=== PATIENT | female | born 1965 | race Two or more races ===

== ENCOUNTER 2023-08-16 06:15 | Inpatient (IN) | payer BC ==
[~2023-08-16] VITALS: Ht 149.9 cm; Wt 80.5 kg
[~2023-08-16 06:15] MED LIST: ATOR20TA PO; LINA145C PO; LISI-285 PO; MULT-732 PO; NORT10CA PO; QUET50TA5 PO
[2023-08-16] MEDS: levoFLOXacin 750MG 150 ML IV ONE (06:30)
[2023-08-16] MEDS: ceFAZolin 2 GM/D5W50ml 50 ML IV ONE (06:30)
[2023-08-16] MEDS: TRANEXAMIC ACID 20 ML ONE (06:34)
[2023-08-16] MEDS: SUCCINYLCHOLINE CHLORIDE 20 MG/ML 10ML VIAL IV ONE (06:59)
[2023-08-16] MEDS ORDERED: fentaNYL CITRATE 100 MCG/2 ML VL ONE ×4 (07:03→09:28)
[2023-08-16] MEDS ORDERED: PROPOFOL 10 MG/ML 20 ML IV ONE (07:08)
[2023-08-16] MEDS ORDERED: MIDAZOLAM HCL 2MG/2ML 2ml VIAL (1mg/ml) ONE (07:11)
[2023-08-16] MEDS ORDERED: PHENYLEPHRINE HCL 10 MG/ML VL ONE (07:14)
[2023-08-16] MEDS ORDERED: LIDOCAINE 1% INJ PF 5ML AMP ONE (07:18)
[2023-08-16] MEDS ORDERED: ONDANSETRON HCL 4 MG/2 ML VIAL ONE (08:04)
[2023-08-16] MEDS ORDERED: DexAMETHasone SOD PHOS 10MG/1ML VIAL INJ ONE (08:04)
[2023-08-16] MEDS: LIDOCAINE W/ EPINEPHRINE 1% 20ML VIAL ONE (08:07)
[2023-08-16] MEDS ORDERED: LABETALOL HCL 5 MG/ML ML 20ML VIAL IV ONE (08:12)
[2023-08-16] MEDS ORDERED: hydrALAZINE HCL 20 MG/ML VL ONE (08:16)
[2023-08-16] MEDS ORDERED: NITROGLYCERIN 0.4 MG SL TAB SL PRN (10:15)
[2023-08-16] MEDS ORDERED: ONDANSETRON HCL 4 MG/2 ML VIAL IV PRN (10:15)
[2023-08-16] MEDS ORDERED: MORPHINE SULFATE INJ 2 MG/ml SYRG IV PRN ×2 (10:15)
[2023-08-16 10:32] VITALS: PULSE 87; RESP 12; O2SAT 100
[2023-08-16] MEDS: ONDANSETRON HCL 4 MG/2 ML VIAL IV ONE (10:45)
[2023-08-16] MEDS ORDERED: MEPERIDINE HCL (25 MG/ML) 1ML VIAL IV PRN (10:45)
[2023-08-16] MEDS: HYDROmorphone HCL 2 MG/ML VL/or syr IV PRN ×2 (11:10→16:26)
[2023-08-16] MEDS: HYDROmorphone HCL 2 MG/ML VL/or syr ONE (11:10)
[2023-08-16] MEDS ORDERED: THROAT LOZENGES(CEPASTAT) MT PRN (11:30)
[2023-08-16] MEDS: CYCLOBENZAPRINE HCL 10 MG TAB PO SCH (13:15)
[2023-08-16] MEDS: ceFAZolin 1GM/50ML 50 ML IV SCH (14:03)
[2023-08-16] MEDS: oxyCODONE ER 10 MG TAB PO ONE ×2 (14:21→14:30)
[2023-08-16 17:47] VITALS: BP 129/67; PULSE 77; RESP 18; TEMP 97.7; O2SAT 95
[2023-08-16] MEDS: HYDROcodone-ACET 10/325MG TAB PO PRN (18:51)
[2023-08-16 20:00] VITALS: RESP 18; O2SAT 99
[2023-08-16 22:00] VITALS: BP 125/64; PULSE 92; RESP 18; TEMP 97.8; O2SAT 95
[2023-08-16] MEDS: D5W/SOD CHLO 0.9% 1,000 ML IV SCH (23:50)
[2023-08-16] MEDS: DOCUSATE SOD 100 MG CAP PO SCH (23:51)
[2023-08-17] VITALS (8 sets, daily range): BP systolic 98–129; BP diastolic 59–72; PULSE 74–104; RESP 16–19; TEMP 98.3–99.8; O2SAT 91–99
[2023-08-17] MEDS: HYDROmorphone HCL 2 MG/ML VL/or syr IV ONE (08:52)
[2023-08-17] MEDS: HYDROmorphone HCL 2 MG/ML VL/or syr IV PRN (13:28)
[2023-08-17] MEDS ORDERED: AMLO1TAB23 PO (17:20)
[2023-08-17] MEDS ORDERED: DULO20CA PO (17:20)
[2023-08-17] MEDS ORDERED: DIVA1TAB59 PO (17:20)
[2023-08-17] MEDS ORDERED: METO10TA3 PO (17:20)
[2023-08-17] MEDS ORDERED: SUMA25TA2 PO (17:20)
[2023-08-18] VITALS (7 sets, daily range): BP systolic 106–152; BP diastolic 51–87; PULSE 94–128; RESP 14–65; TEMP 97–100.4; O2SAT 86–100
[2023-08-19] VITALS (7 sets, daily range): BP systolic 118–131; BP diastolic 60–89; PULSE 86–100; RESP 16–18; TEMP 98.9–99.9; O2SAT 88–95
[2023-08-19] MEDS: CARISOPRODOL 350 MG TAB PO SCH (16:06)
[2023-08-19] MEDS: ACETAMINOPHEN 325 MG TAB PO PRN (20:58)
[2023-08-20 01:10] VITALS: BP 139/76; PULSE 92; RESP 18; TEMP 98.9; O2SAT 93
== END 2023-08-20 01:15 | DRG 455 ==
LOC: SUR 06:15 → OVERFLOW 10:08 → EAST 17:20
PROVIDERS: ADMIT Orthopaedic Surgery; ATTEND Orthopaedic Surgery
PROC: 01NB0ZZ Release Lumbar Nerve, Open Approach (ICD-10-PCS; 2023-08-16)
PROC: 01NR0ZZ Release Sacral Nerve, Open Approach (ICD-10-PCS; 2023-08-16)
PROC: 00NY0ZZ Release Lumbar Spinal Cord, Open Approach (ICD-10-PCS; 2023-08-16)
PROC: 0SG00AJ Fusion of Lumbar Vertebral Joint with Interbody Fusion Device, Posterior Approach, Anterior Column, Open Approach (ICD-10-PCS; 2023-08-16)
PROC: 4A11X4G Monitoring of Peripheral Nervous Electrical Activity, Intraoperative, External Approach (ICD-10-PCS; 2023-08-16)
PROC: 0SG30AJ Fusion of Lumbosacral Joint with Interbody Fusion Device, Posterior Approach, Anterior Column, Open Approach (ICD-10-PCS; 2023-08-16)
PROC: 0SG3071 Fusion of Lumbosacral Joint with Autologous Tissue Substitute, Posterior Approach, Posterior Column, Open Approach (ICD-10-PCS; 2023-08-16)
PROC: 0SG0071 Fusion of Lumbar Vertebral Joint with Autologous Tissue Substitute, Posterior Approach, Posterior Column, Open Approach (ICD-10-PCS; principal; 2023-08-16 07:17)
DX: M48.062 Spinal stenosis, lumbar region with neurogenic claudication (principal); M41.56 Other secondary scoliosis, lumbar region; M41.57 Other secondary scoliosis, lumbosacral region; F41.9 Anxiety disorder, unspecified; E78.5 Hyperlipidemia, unspecified; I10 Essential (primary) hypertension; G89.29 Other chronic pain; F91.9 Conduct disorder, unspecified; M51.16 Intervertebral disc disorders with radiculopathy, lumbar region; Z88.5 Allergy status to narcotic agent; Z88.1 Allergy status to other antibiotic agents
CPT/HCPCS: 36415; 86850; 86900; 86901; 87340; 97110; 97116; 97163; 97530; G0378; J0330; J1100; J1956; J2250; J2405; J2704; J7042

== ENCOUNTER 2024-09-18 06:19 | Inpatient (IN) | payer BC ==
[~2024-09-18] VITALS: Ht 149.9 cm; Wt 83.3 kg
[~2024-09-18 06:19] MED LIST changes: -ATOR20TA PO; -MULT-732 PO; -NORT10CA PO; -QUET50TA5 PO
[2024-09-18] MEDS ORDERED: fentaNYL CITRATE 100 MCG/2 ML VL ONE (07:32)
[2024-09-18] MEDS ORDERED: fentaNYL CITRATE 5 ML ONE (07:32)
[2024-09-18] MEDS ORDERED: HYDROmorphone HCL 2 MG/ML VL/or syr ONE (07:32)
[2024-09-18] MEDS ORDERED: MIDAZOLAM HCL 2MG/2ML 2ml VIAL (1mg/ml) ONE (07:32)
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
--- NOTE | 2024-09-18 07:54 | POSTOP ---
Post-Operative Note Post-Operative Note Preop Diagnosis Cervical Degenerative Disk Disease and Spinal Stenosis Causing incapacitating neck pain, radiculopathy and progressive neurologic deficit with weakness in a esau and legs Postop Diagnosis: Cervical Degenerative Disk Disease and Spinal Stenosis Causing incapacitating neck pain, radiculopathy and progressive neurologic deficit with weakness in arms and legs Procedure: Cervical 3 to 4 anterior cervical discectomy with Cervical 3-4 foraminotomies and facetectomies to decompression the spinal canal and Cervical 4 nerve roots Cervical 4 to 5 anterior cervical discectomy with Cervical 4-5 foraminotomies and facetectomies to decompression the spinal canal and Cervical 5 nerve roots Cervical 3-5 anterior cervical Fusion Cervical 3-5 anterior cervical instrumentation with freestanding cages Cervical 3-4 placement of allograft prosthetic device Cervical 4-5 placement of allograft prosthetic device Operation performed Cervical 3-5 anterior cervical diskectomy and fusion Specimen None Anesthesia: General Anesthesiologist: Dr De Los Santos Blood Loss(fluid mgmt) See anesthesia record Tourniquet Time None Surgeon Dr Raghu Joyner Drawbench Operator Helper Tiffany Whittington, [employer] BUSINESS CONTINUITY DIRECTOR Implant 7mm spacer x 2 3.5 x 14 mm screws x4 Complications & Mgmt None Additional Remarks Postop day 0 Disposition: -Pending -Discharge RX: To be determined -Follow up appointment: with Dr Joyner on your prescheduled postoperative office visit date [id number] [employer] [place] [address] Chung [address] [place] [id number] -Pain: - IV pain meds post op day 1, with PO supplementation, goal is to progress weaning off IV medications and control pain with PO only - P.O. analgesics:Tylenol 650MG (PAIN 1-3) [place] 10/325 mg (PAIN 4-6) - Muscle relaxers scheduled administration. This is a beneficial medications for the incisional pain as it is mostly related to muscle spasms. - Throat spray as needed for sore throat -Antibiotics Operative recommendations: -Postoperative dose:-Post operative antibiotics cefazolin 1 g IV piggyback every 8 hours x 48 hours total of 6 doses -DVT PPX: -Hold all chemical DVT/ blood thinners for 14 days postoperatively -use mechanical DVT PPX such as SCD's, ambulation -Activity: -Pending PT evaluation and patients progression -Sit at side of bed for meals -Goal: Ambulate independently and safely (may use assistive devices if needed) -Medical Therapy goals: -Afebrile- Patient may develop a expected post operative fever by day 2-3, this may not be accompanied with a elevation in WBC. if fever develops: Acetaminophen for fever. Albuterol nebulizer Tx every 12 hours for 24 hours to facilitate adequate lung expansion and prevent development of atelectasis. -Euglycemic: bloods sugars under 130mmol/L for optimal healing -Normotensive: Avoid events of hypertension. This helps to keep post operative healing intact and avoids destabilization of beneficial hemostatic coagulation. Drains -Bulb drains: record output and characteristics of the drainage EVERY 6 HOURS- if there is no output indicate this by documenting 0ml output in note.. These will be to thumbprint compression unless otherwise ordered. Record output as well as amount in a note at least every 6 houtrs- more if indicated. Wound drainage is described by type, color, amount, and odor. Drainage can be 1 serous: Clear and thin, may be present in healing healthy wound. 2 serosanguineous containing blood may also be present and healthy healing wound 3. Sanguinous primarily blood 4. Purulent this is thick, white, and pus like. It may be indicated to give of a infection and should constitute a call to the provider immediately with the plan that the sample should be cultured. -De La O: -DC in OR -Dressings -Anterior cervical patients: Initial surgical dressing may be reinforced if needed. If there is excessive bleeding, leaking, drainage in the bulb drain notify provider -Bowel management: -Colace 100mg bid -Diet: -Clear liquid diet and advance as patient tolerates within dietary limitations ( example: diabetic, Cardiac) -Incentive Spirometer: -10 x hour while awake, RN please educate and observe repeat demonstration, have IS at bedside POD #1 -X-rays: - none indicated at this time -Consults: -Physical Therapy evaluation, treatment recommendations, and discharge recommendations Call with questions Attila Whittington ACNP- Orthopaedic Spine Surgery nurse practitioner For Dr Sarwat Joyner Patient was examined, chart reviewed, labs evaluated, and diagnostic studies and findings analyzed. Case was discussed with Dr. Raghu Joyner who formulated the plan of care. This medical document was created using an electronic medical record system with [employer] dictation system. Although this document has been carefully reviewed, there might still be some phonetic and typographical errors. These areas are purely typographical due to imperfections of the software programs, and do not reflect any compromise in the patient's medical care. Date 09/18/24 Time 07:51 TIFFANY WHITTINGTON NP Sep 18, 2024 07:54
[2024-09-18] MEDS ORDERED: NITROGLYCERIN 0.4 MG SL TAB SL PRN (08:15)
[2024-09-18] MEDS ORDERED: MORPHINE SULFATE INJ 2 MG/ml SYRG IV PRN (08:15)
[2024-09-18] MEDS: D5W/SOD CHLO 0.9% 1,000 ML IV SCH (08:15)
[2024-09-18] MEDS ORDERED: PROPOFOL 10 MG/ML 20 ML IV ONE (08:23)
[2024-09-18] MEDS ORDERED: MIDAZOLAM HCL 2MG/2ML 2ml VIAL (1mg/ml) IV PRN (09:00)
[2024-09-18] MEDS: ONDANSETRON HCL 4 MG/2 ML VIAL IV ONE (09:00)
[2024-09-18] MEDS ORDERED: ONDANSETRON HCL 4 MG/2 ML VIAL ONE (09:06)
[2024-09-18] MEDS ORDERED: ETOMIDATE (2MG/ML) 20ML VIAL IV ONE (09:06)
[2024-09-18] MEDS: TRANEXAMIC ACID 20 ML ONE (09:31)
[2024-09-18] MEDS: ceFAZolin 2 GM/D5W50ml 50 ML IV ONE (09:31)
[2024-09-18] MEDS: DOCUSATE SOD 100 MG CAP PO SCH (10:00)
[2024-09-18] MEDS ORDERED: SUGAMMADEX 200mg/2ml Vial (100MG/ML) IV ONE (10:12)
[2024-09-18 10:35] VITALS: PULSE 100; RESP 13; O2SAT 94
--- NOTE | 2024-09-18 11:11 | DVHOP2 ---
Operative Report - 2 Report Details Date: 09/18/24 Preop Diagnosis: cervical spinal stenosis with incapacitating radiculopathy/ axial neck pain and progressive neurologic deficit Postop Diagnosis: same as pre op Surgeon: Raghu Joyner MD Record Label Intern: Tiffany Wu NP Anesthesiologist: Tim De Los Santos MD Anesthesia: General Consent: The patient was informed of the risks and benefits of the procedure. These include but are not limited to complications of anesthesia, postoperative infection, incomplete relief of symptoms, recurrence of symptoms, damage to blood vessels, nerves and tendons, deep venous thrombosis, pulmonary embolism and possible need for repeat surgery in the future. Name of Procedure Performed see detailed note Procedure Details Procedure Details: Pre Op Diagnosis: Cervical Degenerative Disk Disease and Severe Spinal Stenosis Causing incapacitating neck pain, radiculopathy and progressive neurologic deficit with weakness in arms and legs Post Op Diagnosis: Cervical Degenerative Disk Disease and Spinal Stenosis Causing incapacitating neck pain, radiculopathy and progressive neurologic deficit with weakness in arms and legs Procedure: Cervical 3 to 4 anterior cervical discectomy with Cervical 3-4 foraminotomies and facetectomies to decompression the spinal canal and Cervical 4 nerve roots Cervical 4 to 5 anterior cervical discectomy with Cervical 4-5 foraminotomies and facetectomies to decompression the spinal canal and Cervical 5 nerve roots Cervical 3-5 anterior cervical Fusion Cervical 3-5 anterior cervical instrumentation with freestanding cages Cervical 3-4 placement of allograft prosthetic device Cervical 4-5 placement of allograft prosthetic device Surgeon: Raghu Joyner MD Anesthesia: General Assist: Tiffany Wu NP Fluids and EBL: see anesthesia note Procedure Note: The patient was seen in the Pre-anesthesia Care Unit and the site of the i ncision was initialed by me with a felt tipped marker. All questions by the patient were answered to the satisfaction of the patient and the chart was reviewed. The patient was taken to the operating room and placed supine on the [facility] top table. General anesthesia was induced. Neuromonitoring leads were placed. A rolled towel was placed between the shoulder blades to hyperextend out the chest which will allow better exposure of the cervical spine. Halter traction to 10 pounds was placed. The arms were padded and adducted to the patients side making sure all pulses in the hands were present. Tape traction was undertaken on the shoulders to give us better radiographic exposure of the distal cervical spine. A gel-pad was placed under the occiput and 5 degrees of extension was placed on the neck without adverse effects to the patient. The anterior neck was prepped and draped. Pre-operative antibiotics were given 30 minutes prior to the start of the procedure . A c-arm fluoroscope was used to lissette out the incision site. SHe has a short squat neck; the concern of a diffuclt approach was the reason a longitudinal incision was chosen. At this time, a time out was taken per usual protocol. Next an incision was made through the skin with a 15 blade scalpel through the subcutaneous tissue down to the platysma. Self-retainers were placed. She was bleeding more than normal. 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 The platysma was incised along the longitudinal border with a Metzenbaum scissors. Blunt dissection was made through the deep cervical and pre-tracheal fascia taking care to protect the carotid sheath laterally and the Trachea/esophagus medially. The dissection was carried down to the prevertebral fascia. Any crossing vessels were ligated using a vascular clip or coagulated with a bovie. An esophageal retractor was next used to retract the trachea/esophagus and a bent [address] through the anterior annulus of the cervical disk and a lateral C-arm fluoroscopic image was taken to confirm that we were at the correct level. Next, bovie electrocautery was used to expose the bones of cervical 3,4,5, and bipolar electrocautery was used to lift up the Longus colli and capitus muscles. Self Retainers were used to retract the longus colli and capitus muscles bilaterally as well as the trachea/esophagus to the right and the carotid sheath to the left. Smooth self retaining retractors were placed proximally and distally and a needle was placed again in the anterior annulus of the disk and an image taken to confirm the correct level. At this point, an 11 blade scalpel incised the anterior annulus of the cervical 3/4 and 4/5 disks. Fortunately, there was not significant scarring in the deep layers. Next, straight and curved curettes removed the remainder of the disks all the way down to the posterior longitudinal ligament. Carefully, a Get number one rongeur incised the posterior longitudinal ligament at the lateral end of the above disks and using a micro, blunt tip nerve hook to separate the posterior longitudinal ligament from the dura, alternating 1 mm and 2 mm Kerison rongeurs removed the posterior longitudinal ligament. Next, Kerison 1mm and 2 mm rongeurs were alternated to get under the uncinate processes and undercut them to perform foraminotomies and facetectomies at the cervical 3/4 and 4/5 levels to decompress the central canal and cervical 4,5 nerve roots. the quality of her tissue was poor ; therefore for her case, the discectomy was not difficult and the PLL was removed without difficulty. She was a small lady with a small skeletal size to ehr neck so extensive disc removal was needed to expose the uncinate processes to make sure the graft got into the right position. The c-arm fluoroscope was wheeled into the field and a lateral image was obtained. Increasing size graft trials were used starting at a 5 mm thick size until the proper tension in the disk space and height shinto obtained. We then placed final free standing cages at C3/4 and 4/5. Both grafts were 7mm thickness. Good replacement of lordosis was restored. Satisfactory placement was confirmed in the AP and lateral views using a C-arm fluoroscope. Copious irrigation of the wound with sterile saline and all bleeding was controlled before closure initiated. At this point, a [address] Togolese round R[address] Drain was place deep to the Platysma muscle and the Platysma was approximated with one interrupted 0-Vicryl suture. The subcutaneous tissue was closed with interrupted 2-0 vicryl sutures and the skin was closed with casey. Sterile dressings were placed and a cervical collar placed, the patient extubated, transferred to the stretcher and taken to the Recovery Room in unremarkable condition. Other Notes: [id number], [id number] Condition Stable Disposition Still a Patient RAGHU JOYNER MD Sep 18, 2024 11:11
[2024-09-18 11:27] VITALS: PULSE 97; RESP 17; O2SAT 96
[2024-09-18] MEDS: HYDROmorphone HCL 2 MG/ML VL/or syr IV PRN (11:38)
[2024-09-18] MEDS: hydrALAZINE HCL 20 MG/ML VL ONE ×2 (12:54→18:25)
[2024-09-18] MEDS: hydrALAZINE HCL 20 MG/ML VL IV PRN (12:54)
[2024-09-18] MEDS: ceFAZolin 1GM/50ML 50 ML IV SCH (14:07)
--- NOTE | 2024-09-18 15:02 | DVH ---
C-ARM FLUOROSCOPY: PROCEDURE: C3 through C6 Discectomy/fusion FLUOROSCOPY TIME: 32.6 sec DAP: 8 mgy FINDINGS: Spot intraoperative C arm radiographs demonstrating C3 through C6 Discectomy/fusion. IMPRESSION: Please refer to surgical report for detailed findings.
--- NOTE | 2024-09-18 15:02 | DVH ---
C-ARM FLUOROSCOPY: PROCEDURE: C3 through C6 Discectomy/fusion FLUOROSCOPY TIME: 32.6 sec DAP: 8 mgy FINDINGS: Spot intraoperative C arm radiographs demonstrating C3 through C6 Discectomy/fusion. IMPRESSION: Please refer to surgical report for detailed findings.
[2024-09-18] MEDS ORDERED: SORE THROAT SPRAY 6OZ BOTTLE MT PRN (15:15)
[2024-09-18] MEDS: CYCLOBENZAPRINE HCL 10 MG TAB PO SCH (15:16)
[2024-09-18] MEDS: MORPHINE SULFATE INJ 2 MG/ml SYRG IV PRN (15:50)
[2024-09-18 17:35] VITALS: PULSE 74; RESP 12; O2SAT 96
[2024-09-18] MEDS: MORPHINE SULFATE 4 MG/ML SYR/VIAL IV PRN (17:45)
[2024-09-18] MEDS: MORPHINE SULFATE INJ 2 MG/ml SYRG ONE (17:45)
[2024-09-18] MEDS: Linaclotide Base (Linzess) 145 MCG PO SCH (18:00)
[2024-09-18] MEDS: HYDROmorphone HCL 2 MG/ML VL/or syr ONE (18:03)
[2024-09-18] MEDS: OXYCODONE W/ ACETAMINOPHEN 5/325MG TABLET PO PRN (18:40)
[2024-09-19] VITALS (9 sets, daily range): BP systolic 118–169; BP diastolic 68–102; PULSE 90–112; RESP 16–18; TEMP 98.1–98.8; O2SAT 91–96
[2024-09-19] MEDS: hydroCHLOROthiazide 25 MG TAB PO SCH (06:28)
[2024-09-19] MEDS: LISINOPRIL 20 MG TAB PO SCH (06:29)
[2024-09-19] MEDS: ACETAMINOPHEN 325 MG TAB PO PRN (12:15)
[2024-09-19] MEDS: hydrALAZINE HCL 20 MG/ML VL IV ONE (12:56)
--- NOTE | 2024-09-19 13:51 | DVHINCON2 ---
Date Seen: Sep 19, 2024 Referring Physician Spine surgeon. Reason for Consultation Medical management. History of Present Illness 59-year-old female with a known history of chronic neck pain since August last year, previous history of back pain status post back surgery, hypertension who initially was brought in by orthopedic spine surgery for elective surgery for C- spine cervical spine stenosis with a claudication. Patient is status post C- spine surgery postop day one. Past Medical History Hypertension Chronic back pain with a back surgery in the past C-spine surgery at C3-4 five level. Past Surgical History Back surgery C3-4 five spine surgery. Family History: Cerebrovascular accident (CVA) G8 FATHER, Diabetes mellitus G8 MOTHER, G8 BROTHER G8 BROTHER, G8 SISTER FH: CHF (congestive heart failure) G8 MOTHER, FH: cancer G8 BROTHER G8 SISTER FH: heart attack G8 MOTHER, Allergies: Coded Allergies: Tetracycline (Unverified Allergy, Intermediate, Hives, N/V, abdominal pain, 08/10/23) Home Meds Reported Medications Lisinopril & Hydrochlorothiazi (Lisinopril/Hydrochlorothi) 1 Tab Tab, 1 TAB PO QAM, TAB [20/25 MG] 08/10/23 Linaclotide Base (LINZESS) 145 Mcg Cap, 145 MCG PO QPM 08/10/23 Current Medications Current Medications Medications (Trade) Dose Ordered Sig/Mitchell Route PRN Reason Start Time Stop Time Status Last Admin Cyclobenzaprine HCl (Flexeril Tablet) 10 mg TID PO 09/18/24 14:00 09/19/24 06:00 Cefazolin Sodium 50 ml @ 100 mls/hr Q8HR IV 09/18/24 14:00 09/20/24 06:29 09/19/24 06:26 Patient Own Medication 145 mcg QPM PO 09/18/24 18:00 Lisinopril (Zestril Tablet) 20 mg QAM PO 09/19/24 07:00 09/19/24 06:29 Hydrochlorothiazide (hydroCHLOROthiazide TABLET) 25 mg QAM PO 09/19/24 07:00 09/19/24 06:28 Phenol/Menthol (Chloraseptic) 1 spr Q2HP PRN MT FOR SORE THROAT 09/18/24 15:15 Review of Systems Twelve review of system are negative besides mentioned above. 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 1. Cervical spine stenosis at L3-4 five level status post L3-4 -5 C-spine surgery postop day one 2. Hypertension 3. Previous history of back surgery -pain meds, PT evaluation treatment, discharge plan per orthopedic spine surgery. -resume home medications. Problems(with codes): (1) Lumbar stenosis with neurogenic claudication Plan discussed with: Patient Date of Service: Sep 19, 2024 Billing Provider: ADRIANNE ALCANTARA MD Common Visit Codes: NOT BILLABLE ADRIANNE ALCANTARA MD Sep 19, 2024 13:51
--- NOTE | 2024-09-19 14:51 | DVHPN2 ---
Progress Note - Surgical Date Seen: Sep 19, 2024 Post op day Post op day: 1 Subjective Patient reports: No new complaints, Feels better (with preoperative symptoms,), Other (neck achy ) Review of Systems: HEENT:Normal, CVS:Normal, RESPIRATORY:Normal, GI:Normal, :Normal, MSK:Normal, NEURO:Normal (ambulating on unit, preoperative symptoms have improved) Objective Vital signs Vital Sign Date Time Temp Pulse Resp B/P (MAP) Pulse Ox O2 Delivery O2 Flow Rate FiO2 09/19/24 14:02 113 16 149/91 09/19/24 13:00 98.8 95 98.8 09/19/24 08:00 Nasal Cannula* 3 32 Total Intake and Output 09/18/24 09/18/24 09/19/24 15:00 23:00 07:00 Intake Total 420 ml Output Total 0 ml 0 ml 500 ml Balance 0 ml 0 ml -80 ml Medications Current Medications Medications Dose Ordered Sig/Mitchell Route Start Time Stop Time Status Last Admin Dose Admin Dextrose/Sodium Chloride 1,000 ml @ 100 mls/hr Q10H IV 09/18/24 08:15 09/19/24 06:26 100 MLS/HR Ondansetron HCl 4 mg Q4HP PRN IV 09/18/24 08:15 Acetaminophen 650 mg Q6HP PRN PO 09/18/24 08:15 09/19/24 12:15 650 MG Morphine Sulfate 1 mg Q4HP PRN IV 09/18/24 08:15 09/19/24 14:02 1 MG Cyclobenzaprine HCl 10 mg TID PO 09/18/24 14:00 09/19/24 06:00 10 MG Docusate Sodium 100 mg BID PO 09/18/24 10:00 09/19/24 10:08 100 MG Cefazolin Sodium 50 ml @ 100 mls/hr Q8HR IV 09/18/24 14:00 09/20/24 06:29 09/19/24 06:26 100 MLS/HR Nitroglycerin 0.4 mg Q5MINP PRN SL 09/18/24 08:15 Morphine Sulfate 2 mg Q30M PRN IV 09/18/24 08:15 Oxycodone/ Acetaminophen 2 tab Q4HP PRN PO 09/18/24 08:15 09/18/24 18:40 2 TAB Patient Own Medication 145 mcg QPM PO 09/18/24 18:00 Lisinopril 20 mg QAM PO 09/19/24 07:00 09/19/24 06:29 20 MG Hydrochlorothiazide 25 mg QAM PO 09/19/24 07:00 09/19/24 06:28 25 MG Phenol/Menthol 1 spr Q2HP PRN MT 09/18/24 15:15 Examination: GENERAL:Normal, HEENT:Normal, NECK:Abnormal (muscles sore lateral posterior), CVS:Normal, ABDOMEN:Normal, MSK:Normal, SKIN:Normal (left anterior surgical wound well aproximated with casey), NEURO:Normal, :Normal Problem List/Assessment/Plan Problems: (1) Postoperative pain after spinal surgery (2) Lumbar stenosis with neurogenic claudication Assessment and Plan Postop day 1 events of the day drain DC - new dressing DC tele monitoring pain to lateral neck muscles preoperative symptoms improved sore throat=, ice chips, Cepacol spray, Decadron 10 mg iv X 1 progressing to DC Disposition: -Pending -Discharge RX: sent by dr joyner -Follow up appointment: with Dr Joyner on your prescheduled postoperative office visit date [phone] [id number] [facility] [address] [place] [id number] -Pain: - IV pain meds post op day 1, with PO supplementation, goal is to progress weaning off IV medications and control pain with PO only - P.O. analgesics:Tylenol 650MG (PAIN 1-3) [place] 10/325 mg (PAIN 4-6) - Muscle relaxers scheduled administration. This is a beneficial medications for the incisional pain as it is mostly related to muscle spasms. - Throat spray as needed for sore throat -Antibiotics Operative recommendations: -Postoperative dose:-Post operative antibiotics cefazolin 1 g IV piggyback every 8 hours x 48 hours total of 6 doses -DVT PPX: -Hold all chemical DVT/ blood thinners for 14 days postoperatively -use mechanical DVT PPX such as SCD's, ambulation -Activity: -Pending PT evaluation and patients progression -Sit at side of bed for meals -Goal: Ambulate independently and safely (may use assistive devices if needed) -Medical Therapy goals: -Afebrile- Patient may develop a expected post operative fever by day 2-3, this may not be accompanied with a elevation in WBC. if fever develops: Acetaminophen for fever. Albuterol nebulizer Tx every 12 hours for 24 hours to facilitate adequate lung expansion and prevent development of atelectasis. -Euglycemic: bloods sugars under 130mmol/L for optimal healing -Normotensive: Avoid events of hypertension. This helps to keep post operative healing intact and avoids destabilization of beneficial hemostatic coagulation. -Dressings -Anterior cervical patients: dressing changed PRN -Bowel management: -Colace 100mg bid -Diet: - advance as patient tolerates within dietary limitations ( example: diabetic, Cardiac) -Incentive Spirometer: -10 x hour while awake, RN please educate and observe repeat demonstration, have IS at bedside POD #1 -X-rays: - none indicated at this time -Consults: -Physical Therapy evaluation, treatment recommendations, and discharge recommendations Call with questions Attila Wu ACNP- Orthopaedic Spine Surgery nurse practitioner For Dr Sarwat Joyner Patient was examined, chart reviewed, labs evaluated, and diagnostic studies and findings analyzed. Case was discussed with Dr. Raghu Joyner who formulated the plan of care. This medical document was created using an electronic medical record system with [employer] dictation system. Although this document has been carefully reviewed, there might still be some phonetic and typographical errors. These areas are purely typographical due to imperfections of the software programs, and do not reflect any compromise in the patient's medical care. My Orders My Orders Orders - JOHN WU NP Procedure Category Date Status Time Sore Throat [place] PHA 09/18/24 In Process (Chloraseptic) 15:15 Plan discussed with Plan discussed with: Patient, Other Visit Coding Surgery Date of Service if different f: Sep 18, 2024 Billing Provider: JOHN WU NP Surgery Visit Codes: NOT BILLABLE JOHN WU NP Sep 19, 2024 14:51
[2024-09-19] MEDS: ONDANSETRON HCL 4 MG/2 ML VIAL IV PRN (14:59)
[2024-09-19] MEDS ORDERED: HYDROcodone-ACET 10/325MG TAB PO PRN (16:00)
[2024-09-19] MEDS: MORPHINE SULFATE INJ 2 MG/ml SYRG IV PRN (18:21)
[2024-09-20 05:00] VITALS: BP 129/82; PULSE 76; RESP 18; TEMP 98; O2SAT 93
[2024-09-20 08:00] VITALS: BP 147/96; PULSE 86; RESP 20; TEMP 97.5; O2SAT 94
[2024-09-20 13:00] VITALS: BP 131/89; PULSE 93; RESP 16; TEMP 96.7; O2SAT 95
--- NOTE | 2024-09-20 15:12 | DVHDS2 ---
ADRIANNE ALCANTARA MD 09/20/24 1512: Discharge Summary Date of Admission Sep 18, 2024 at 08:09 Date of Discharge: Sep 20, 2024 Brief Hx & Hospital Course: 59-year-old female with a known history of hypertension, previous history of back surgery presented to the hospital for elective C-spine surgery. Patient was eventually admitted. Patient underwent anterior diskectomy at C3-4 -5 levels with spinal fusion surgery. Postoperatively patient did fairly well. Patient is currently awake alert oriented and requesting to go home. Patient is being discharged under stable condition as she is already cleared by spine surgery. Condition at Discharge: Stable Final Diagnosis/Problems List 59-year-old female with a known history of hypertension, previous history of back surgery presented to the hospital for elective C-spine surgery. 1. Cervical spine stenosis/cervical radiculopathy status post at C3-4-5 anterior cervical diskectomy with a spinal fusion surgery. 2. Hypertension 3. Previous history of back surgery Discharge Disposition: Still a Patient SNF Discharge Will this Physician continue t: No Discharge Instruct/Medications Diet: Cardiac 2g Na,low cholest Activity: See Comment Activity comment: No driving, no signing legal documents, no playing on machinery while on narcotics or any other pain medications. Follow Up/Referral: Follow up with the PCP in 1-2 weeks Follow up with the spine surgery in 1-2 weeks. Medications: Resume medications, new prescription as prescribed by spine surgery. Scheduled Linaclotide Base (Linzess), 145 MCG PO QPM, (Reported) Lisinopril & Hydrochlorothiazi (Lisinopril/Hydrochlorothi), 1 TAB PO QAM, (R eported) Discharge Statement: "Patient was advised to return to the ER or call 911 if any headaches, dizziness, shortness of breath, chest pain, abdominal pain, bleeding, fevers, or worsening of medical condition. Patient was counseled about treatment plan, medications, possible side effects, patientverbalized understanding. All questions were answered to the best of my ability. This discharge took greater then 30 minutes in planning, reviewing documentation, counseling the patient, and discussing with other team members." ASSESSMENT ASSESSMENT Assessment 59-year-old female with a known history of hypertension, previous history of back surgery presented to the hospital for elective C-spine surgery. 1. Cervical spine stenosis/cervical radiculopathy status post at L3-4-5 anterior cervical diskectomy with a spinal fusion surgery. 2. Hypertension 3. Previous history of back surgery Date of Service: Sep 20, 2024 Billing Provider: ADRIANNE ALCANTARA MD Common Visit Codes: NOT BILLABLE JOHN WHITTINGTON ELYSIA 09/20/24 1527: Discharge Summary Date of Admission 09/18/24 Date of Discharge: Sep 20, 2024 Admitting Diagnosis Cervical stenosis with neurogenic claudication Wounds: left anterior neck Brief Hx & Hospital Course: The patient arrived for a elective spine surgery with Dr. JOYNER. Surgery went as planned with no complications. After a short stay in the PACU patient was admitted to the hospital for postoperative care and pain management over the course of 2 postoperative days the patient was able to tolerate a diet, ambulate independently, the pain has been managed with oral analgesics. The surgical site is well-approximated with sutures, some residual drainage continues from drain insertion sites after removal, however it is manageable with daily wound care and dressing changes. Some improvement to preoperative symptoms of extremities, strength and motion. There is new post operative pain that is localized to the surgical site. The patient will follow-up with Dr. Joyner for wound check and suture check or staple removal. Patient has progressed well postoperatively Drain was discontinued yesterday with minimal output Patient has slightly limited range of motion to her neck due to muscle soreness to the lateral aspects Incision is well approximated with casey no swelling or redness noted Patient has progressed to walk 100 ft with physical therapy Patient has medications for oral analgesia, muscle relaxers sent by Dr. Chavez at his preoperative visit. Patient has a postoperative appointment already scheduled Patient is cleared to be discharge from a spine surgery perspective Call [phone] for a appointment, or to change or confirm your appointment [address] [facility], [address] [id number] You may shower and let the water run over your neck wound however you must pat it dry with sterile 4x4s gauze. Please do not use regular household towels. Keep your incision covered when you are out of your house or when you are wearing clothing that rub on your incision. He will also do not want to have a seatbelt rubbing on your incision. If you are at home and you have clothing that does not contact your incision you may leave it open to air. You may have some residual drainage from the drain site for the next 2-3 days w hich is normal it should be a very light pink or merlin color fluid. If it changes or becomes bright red please call 911. Discharge physical assessment per hospitalist assessment. Call with questions Attila Whittington [facility] Orthopaedic Spine Surgery nurse practitioner For Dr Sarwat Joyner Condition at Discharge: Good Final Diagnosis/Problems List Problems List: (1) Postoperative pain after spinal surgery Status: Acute Discharge Disposition: Home Discharge Instruct/Medications Diet: See Comment Diet comment: You may resume your regular diet, be sure to to your food well if he is still having a sore throat. Dry and concentrate on using foods that are soft in texture and easy to swallow Activity: Light activity Activity comment: Continue to move your neck and head from [id number] in a slow fashion, ambulate frequently, use your incentive spirometer hourly while awake. Follow Up/Referral: Keep your scheduled appointment with Dr. Monroe Medications: Medications sent by Dr. Monroe on his preoperative visit to your preferred per pharmacy Scheduled Linaclotide Base (Linzess), 145 MCG PO QPM, (Reported) Lisinopril & Hydrochlorothiazi (Lisinopril/Hydrochlorothi), 1 TAB PO QAM, (Reported) Date of Service: Sep 18, 2024 Billing Provider: ADRIANNE ALCANTARA MD Common Visit Codes: [id number] DISCH DAY <30MIN ADRIANNE ALCANTARA MD Sep 20, 2024 15:12 JOHN WHITTINGTON NP Sep 20, 2024 15:27
[2024-09-20] MEDS ORDERED: MILK OF MAGNESIA 30ML SUSP PO ONE (15:15)
--- NOTE | 2024-09-20 15:19 | PRN ---
Misceleneous Note Note Note Patient has progressed well postoperatively Drain was discontinued yesterday with minimal output Patient has slightly limited range of motion to her neck due to muscle soreness to the lateral aspects Incision is well approximated with casey no swelling or redness noted Patient has progressed to walk 100 ft with physical therapy Patient has medications for oral analgesia, muscle relaxers sent by Dr. Chavez at his preoperative visit. Patient has a postoperative appointment already scheduled Patient is cleared to be discharge from a spine surgery perspective Call [phone] for a appointment, or to change or confirm your appointment [address] [facility], [facility] [address] [id number] You may shower and let the water run over your neck wound however you must pat it dry with sterile 4x4s gauze. Please do not use regular household towels. Keep your incision covered when you are out of your house or when you are w earing clothing that rub on your incision. He will also do not want to have a seatbelt rubbing on your incision. If you are at home and you have clothing that does not contact your incision you may leave it open to air. You may have some residual drainage from the drain site for the next 2-3 days which is normal it should be a very light pink or merlin color fluid. If it changes or becomes bright red please call 911. Discharge physical assessment per hospitalist assessment. Call with questions Attila Wu [facility] Orthopaedic Spine Surgery nurse practitioner For Dr Sarwat Joyner Patient was examined, chart reviewed, labs evaluated, and diagnostic studies and findings analyzed. Case was discussed with Dr. Raghu Joyner who formulated the plan of care. This medical document was created using an electronic medical record system with [employer] dictation system. Although this document has been carefully reviewed, there might still be some phonetic and typographical errors. These areas are purely typographical due to imperfections of the software programs, and do not reflect any compromise in the patient's medical care. JOHN WU NP Sep 20, 2024 15:19
[2024-09-20 15:37] VITALS: BP 131/89; PULSE 93; RESP 16; TEMP 96.7; O2SAT 95
[2024-09-20 16:00] VITALS: BP 110/69; PULSE 92; RESP 18; TEMP 97.7; O2SAT 93
[2024-09-20 16:04] VITALS: BP 131/89; PULSE 93; RESP 16; TEMP 97.7; O2SAT 95
== END 2024-09-20 17:58 | disposition home health service (06) | DRG 473 ==
LOC: SUR 06:19 → OVERFLOW 08:09 → TELE-WESTW 20:18 → WEST WING 09-19 21:04
PROVIDERS: ADMIT Orthopaedic Surgery; ATTEND Orthopaedic Surgery
PROC: 0RB30ZZ Excision of Cervical Vertebral Disc, Open Approach (ICD-10-PCS; 2024-09-18)
PROC: 01N10ZZ Release Cervical Nerve, Open Approach (ICD-10-PCS; 2024-09-18)
PROC: 00NW0ZZ Release Cervical Spinal Cord, Open Approach (ICD-10-PCS; 2024-09-18)
PROC: 4A11X4G Monitoring of Peripheral Nervous Electrical Activity, Intraoperative, External Approach (ICD-10-PCS; 2024-09-18)
PROC: 0RG20A0 Fusion of 2 or more Cervical Vertebral Joints with Interbody Fusion Device, Anterior Approach, Anterior Column, Open Approach (ICD-10-PCS; principal; 2024-09-18 08:01)
DX: M48.02 Spinal stenosis, cervical region (principal); I73.9 Peripheral vascular disease, unspecified; I10 Essential (primary) hypertension; M50.121 Cervical disc disorder at C4-C5 level with radiculopathy; Z88.5 Allergy status to narcotic agent; Z83.3 Family history of diabetes mellitus; Z82.49 Family history of ischemic heart disease and other diseases of the circulatory system; Z82.3 Family history of stroke
CPT/HCPCS: 72040; 76000; 86850; 86900; 86901; 97110; 97116; 97163; G0378; J1100; J1956; J2250; J2405; J2704